=== PATIENT | female | born 1955 | race Caucasian/White ===

== ENCOUNTER → 2016-10-07 | Outpatient (CLI) | payer BC ==
[~2016-10-07] MED LIST: ASCO500T6 PO; ATEN50TA PO; CALC600T12 PO; CHOL10003 PO; GARL1000 PO; MV-M1TAB38 PO; OMG1KC PO; SOLI10TA2 PO; TOLT2CAP PO; TRIA1CAP4 PO; VITA400T9 PO; ZINC50TA4 PO
== END ==
DX: M47.816 Spondylosis without myelopathy or radiculopathy, lumbar region (principal); M43.06 Spondylolysis, lumbar region; M41.26 Other idiopathic scoliosis, lumbar region; M25.551 Pain in right hip

== ENCOUNTER 2017-01-12 08:00 | Outpatient (RCR) | payer BC | END 2017-01-15 | disposition home or self-care (01) | PROVIDERS: ATTEND Internal Medicine | DX: G57.01 Lesion of sciatic nerve, right lower limb (principal) ==

== ENCOUNTER 2017-01-21 09:49 | Outpatient (RCR) | payer BC | END 2017-03-02 11:44 | disposition home or self-care (01) | PROVIDERS: ATTEND Internal Medicine | DX: G57.01 Lesion of sciatic nerve, right lower limb (principal) ==

== ENCOUNTER → 2017-02-11 | Outpatient (CLI) | payer BC | LOC: RAD 09:37 | PROVIDERS: ATTEND Internal Medicine | DX: Z12.31 Encounter for screening mammogram for malignant neoplasm of breast (principal) | CPT/HCPCS: 77067 ==

== ENCOUNTER → 2017-04-05 | Outpatient (CLI) | payer BC ==
--- NOTE | 2017-04-05 09:45 | Diagnostic Imaging Report ---
PROCEDURE: MR imaging of the brain without contrast. TECHNIQUE: Multiplanar, multisequence MR imaging of the brain was performed without contrast. INDICATION: Difficulty speaking FINDINGS: There is no diffusion restriction to suggest an acute infarct or other diffusion abnormality. There is minimal periventricular white matter T2 hyperintense signal suggestive of a mild chronic microvascular ischemic changes, expected at the patient's age. There is otherwise no demyelinating process, or evidence of a mass or brain edema. The brainstem and cerebellum appear unremarkable. No hydrocephalus. No extra-axial fluid collection seen. The pituitary gland is normal in size. No hypothalamic or pineal region mass. The central vascular flow-voids appear grossly unremarkable. The internal auditory canal and inner ear structures appear unremarkable. The visualized portions of the orbits and the paranasal sinuses appear grossly unremarkable. IMPRESSION: No acute infarct. No significant abnormality. Dictated by: Dictated on workstation # [id number]
== END ==
LOC: RAD 08:32
PROVIDERS: ATTEND Internal Medicine
DX: R47.1 Dysarthria and anarthria (principal)
CPT/HCPCS: 70551

== ENCOUNTER → 2017-07-12 | Day surgery (SDC) | payer BC ==
[~2017-07-12] VITALS: Ht 162.6 cm; Wt 75.7 kg
--- OUTSIDE RECORDS SUMMARY | 2017-07-12 11:45 | XMS REPORT | Clinical Summary ---
Author Author [facility] Organization [facility] Address Unknown Phone Unavailable Care Team Providers Care Custodian Supervisor Name Role Phone Олег Beltrán MD PCP Agustin Lara MD Unavailable Source Comments Some departments are not documenting in the electronic medical record. If you do not see the information that you expected, contact Release of Information in the Health Information Management department at [phone] for further assistance in locating additional records.[facility] Allergies No Active Allergies Current Medications Prescription Sig. Disp. Refills Start End Date Status Date atenolol (TENORMIN) 50 mg Daily. 04/20/19 Active PO Tab 08 ascorbic acid (VITAMIN C) Daily. 04/20/19 Active 500 mg PO Tab 08 Vitamin E 200 unit PO Tab Daily. 04/20/19 Active 08 Calcium-Cholecalciferol Daily. 04/20/19 Active (D3) (CALCIUM + D) 600 08 (1,500)-200 mg-unit PO Tab Granite-3 Fatty Daily. 04/20/19 Active Acids-Vitamin E (FISH 08 OIL) 1,000 mg PO Cap Garlic 1,000 mg PO Cap Daily. 04/20/19 Active 08 multivitamin Daily. 04/20/19 Active (MULTI-VITAMIN) PO per 08 tablet Zinc 50 mg PO Cap Daily. 04/20/19 Active 08 Ascorbate Daily. 04/20/19 Active Calcium-Bioflavonoid 08 (KESHIA-C) 1,000-200 mg PO TbSR Active Problems Not on file Social History Tobacco Use Types Packs/Day Years Used Date Never Assessed Sex Assigned at Date Recorded Not on file Last Filed Vital Signs Not on file Plan of Treatment Health Maintenance Due Date Last Done Comments HEPATITIS C SCREENING 1954 PHYSICAL (COMPREHENSIVE) 1961 EXAM PERTUSSIS VACCINE 1965 HIV SCREENING 1969 TETANUS VACCINE 1971 CERVICAL CANCER SCREENING 1984 BREAST CANCER SCREENING 1994 COLORECTAL CANCER 2004 SCREENING SHINGLES VACCINE 2014 INFLUENZA VACCINE 01/16/2018 Results Not on filefrom Last 3 Months
--- NOTE | 2017-07-12 13:42 | Progress Note-Standard ---
Standard Progress Note Progress Notes/Assess & Plan Time Seen by Provider: 12:30 Final Diagnosis Consulted for lumbar puncture with opening pressures. Pt's history, MRI and lab work reviewed. Consent obtained, and equipment gathered. Pt in lateral position , sterile drape and beta prep x3. L3-L4 area localized with 1% lidocaine. 22 gauge pencan needle placed thru 18 gauge introducer with + clear CSF return. Pressure in lateral position measured 18 cmH2O. Pt velia procedure well. Report to RN with instructions to discharge when ready and stable. DARIA REED CRNA Jul 12, 2017 13:42
[2017-07-12 13:58] LABS: CSF GLUCOSE 63 MG/DL (50-80); CSF TOTAL PROTEIN 38 MG/DL (15-40)
[2017-07-12 14:15] LABS: APPEARANCE,CSF CLEAR; COLOR,CSF COLORLESS; RED BLOOD CELL,CSF 1 CELLS (0-0); WHITE BLOOD CELL,CSF 0 CELLS (0-5)
[2017-07-12 14:16] LABS: CSF TUBE NUMBER 4
[2017-07-12 14:30] VITALS: BP 130/78
== END | disposition home or self-care (01) ==
LOC: SDC 11:41
PROVIDERS: ATTEND Internal Medicine
DX: R47.1 Dysarthria and anarthria (principal); R26.9 Unspecified abnormalities of gait and mobility; R53.1 Weakness
CPT/HCPCS: 36415; 82784; 82945; 83916; 84157; 86592; 86618; 87070; 87205; 89051

== ENCOUNTER → 2018-02-13 | Outpatient (CLI) | payer BC ==
--- NOTE | 2018-02-13 11:58 | Diagnostic Imaging Report ---
INDICATION: Routine screening. COMPARISON: 02/11/2017 and 02/11/2016. TECHNIQUE: 2D and 3D bilateral screening mammography was performed with CAD. FINDINGS: Scattered fibroglandular densities are identified bilaterally. There are benign calcifications bilaterally. There is a density noted in the right breast at posterior depth just lateral to the nipple line which appears more prominent than on the prior exam. No definite correlate on the MLO view is seen. This likely represents superimposed tissue but additional views are recommended. The left breast is unremarkable. No suspicious microcalcifications are seen. The axillae are unremarkable. IMPRESSION: Right breast density. Additional views are recommended. ACR BI-RADS Category 0: Incomplete. (Needs additional imaging evaluation). Result letter will be mailed to the patient. Note: At least 10% of breast cancer is not imaged by mammography. Dictated by: Dictated on workstation # [id number]
== END ==
LOC: RAD 08:58
PROVIDERS: ATTEND Obstetrics & Gynecology
DX: Z12.31 Encounter for screening mammogram for malignant neoplasm of breast (principal); R92.8 Other abnormal and inconclusive findings on diagnostic imaging of breast
CPT/HCPCS: 77067

== ENCOUNTER → 2018-03-16 | Outpatient (CLI) | payer BC ==
--- NOTE | 2018-03-16 11:03 | Diagnostic Imaging Report ---
Indication: Right breast density. Patient presents for additional views. Correlation is made with prior mammogram from 02/13/2018. Unilateral right 2-D and 3-D diagnostic mammography was performed including spot compression CC, rolled CC and 90 degree lateral views. Additional views show some mild persistent density in the lower and outer right breast approximately 9 cm from the nipple. While this may represent fibroglandular tissue, other etiologies cannot be excluded. Ultrasound is recommended. Right breast is heterogeneously dense. Impression: Mild residual density with additional views. Sonographic interrogation of the lower outer right breast 9-10 cm from the nipple is recommended and will be performed this morning. BI-RADS zero ACR BI-RADS Category 0: Incomplete. (Needs additional imaging evaluation). Result letter will be mailed to the patient. Note: At least 10% of breast cancer is not imaged by mammography. Dictated by: Dictated on workstation # [id number]
--- NOTE | 2018-03-16 11:11 | Diagnostic Imaging Report ---
INDICATION: Right breast density. Correlation is made with diagnostic mammogram earlier the same day and screening mammogram from 02/13/2018. Sonographic interrogation of the outer portion of the right breast was performed. No solid or cystic masses are seen. No abnormality is identified. IMPRESSION: BI-RADS 3 No sonographic abnormality is identified. Even so, followup right mammogram in 6 months is recommended to show continued stability of the area of density. ACR BI-RADS Category 3: Probably benign findings. Dictated by: Dictated on workstation # [id number]
== END ==
LOC: RAD 09:12
PROVIDERS: ATTEND Internal Medicine
DX: R92.2 Inconclusive mammogram (principal)

== ENCOUNTER 2018-06-15 09:24 | Outpatient (RCR) | payer BC | END 2018-06-15 10:45 | disposition home or self-care (01) | PROVIDERS: ATTEND Psychiatry & Neurology Neurology | DX: G12.23 Primary lateral sclerosis (principal); I10 Essential (primary) hypertension ==

== ENCOUNTER → 2018-09-14 | Outpatient (CLI) | payer BC ==
--- NOTE | 2018-09-14 20:52 | Diagnostic Imaging Report ---
INDICATION: Right breast density. Patient presents for six-month followup. COMPARISON: Correlation is made with prior mammogram from 03/16/2018. EXAMINATION: Unilateral right 2D and 3D diagnostic mammography was performed including CC, MLO and ML views. In addition, spot compression CC and rolled CC views were performed today. FINDINGS: The area of density noted at posterior depth just lateral to the nipple line on the CC view is similar to prior exam. Additional views show dispersion of fibromyomata elements. No suspicious calcifications are seen. IMPRESSION: Stable right mammogram. Additional followup in six months is recommended to show continued stability. ACR BI-RADS Category 3: Probably benign findings. Result letter will be mailed to the patient. Note: At least 10% of breast cancer is not imaged by mammography. Dictated by: Dictated on workstation # [id number]
== END ==
LOC: RAD 12:43
PROVIDERS: ATTEND Internal Medicine
DX: N64.89 Other specified disorders of breast (principal); R92.2 Inconclusive mammogram

== ENCOUNTER → 2018-11-21 | Outpatient (CLI) | payer BC ==
--- NOTE | 2018-11-21 16:58 | Diagnostic Imaging Report ---
INDICATION: Postmenopausal female. COMPARISON: None. FINDINGS: AP Spine L2-L4: [BMD (g/cm2): 1.263] [T-Score: 0.5] [Z-Score: 1.9] [BMD Previous: N/A] [BMD % Change: N/A] LT Hip Neck: [BMD (g/cm2): 0.914] [T-Score: -0.9] [Z-Score: 0.4] LT Hip Total: [BMD (g/cm2):0.934] [T-Score:-0.6] [Z-Score: 0.5] [BMD Previous: N/A] [BMD % Change: N/A] RT Hip Neck: [BMD (g/cm2):0.985] [T-Score:-0.4] [Z-Score:1.0] RT Hip Total: [BMD (g/cm2):0.898] [T-score:-0.9] [Z-Score:0.2] [BMD Previous:N/A] [BMD % Change:N/A] *Indicates significant change from prior examination based on 95% confidence level. World Health Organization criteria for BMD interpretation classify patients as Normal (T-score at or above -1.0), Osteopenic (T-score between -1.0 and -2.5) or Osteoporotic (T-score at or below -2.5). LIMITATIONS AND MODIFICATION: Degenerative changes in the lumbar spine may falsely elevate bone density. FRACTURE RISK (FRAX SCORE): Not applicable. IMPRESSION: 1. Normal Bone mineral density. 2. Baseline examination. 3. See below National Osteoporosis Foundation guidelines on when to potentially initiate pharmacologic therapy. Based on the National Osteoporosis Foundation Guidelines, pharmacologic treatment should be initiated in any of the following, unless clinical conditions suggest otherwise: * Any patient with prior fragility fracture of the hip or vertebrae. A spine fracture indicates 5X risk for subsequent spine fracture and 2X risk for subsequent hip fracture. * Osteoporosis (T-score <-2.5). * Postmenopausal women and men age 50 and older with low bone mass/osteopenia (T-score between -1.0 and -2.5) by DXA and 10-year major osteoporotic fracture greater than 20% or a 10-year probability of hip fracture greater than 3%. These fracture risks are supplied above in the FRAX score, if applicable. * Clinician judgement and/or patient preferences may indicate treatment for people with 10-year fracture probabilities above or below these levels. Dictated by: Dictated on workstation # [id number]
== END ==
LOC: RAD 10:34
PROVIDERS: ATTEND Internal Medicine
DX: G12.23 Primary lateral sclerosis (principal); I10 Essential (primary) hypertension; M40.209 Unspecified kyphosis, site unspecified; Z78.0 Asymptomatic menopausal state
CPT/HCPCS: 77080

== ENCOUNTER → 2019-02-14 | Outpatient (CLI) | payer BC ==
--- NOTE | 2019-02-14 09:42 | Diagnostic Imaging Report ---
INDICATION: Six month followup right breast density. COMPARISON: Correlation is made with prior mammograms dating back to 02/11/2017. TECHNIQUE: 2D and 3D bilateral diagnostic mammography was performed with CAD. FINDINGS: Both breasts remain heterogeneously dense, limiting the sensitivity of mammography. Scattered benign-appearing parenchymal and vascular calcifications are again noted. The density in the posterior and slightly outer right breast is less prominent on today's study. No discrete mass or malignant appearing microcalcifications are seen. The axillae are unremarkable. IMPRESSION: No mammographic features suspicious for malignancy are identified. The patient may return to routine annual screening mammography. ACR BI-RADS Category 2: Benign findings. Result letter will be mailed to the patient. Note: At least 10% of breast cancer is not imaged by mammography. Dictated by: Dictated on workstation # [id number]
== END ==
LOC: RAD 08:46
PROVIDERS: ATTEND Internal Medicine
DX: R92.2 Inconclusive mammogram (principal)
CPT/HCPCS: 77066

== ENCOUNTER → 2019-10-29 | Outpatient (CLI) | payer MEDICARE, BC ==
[~2019-10-29] MED LIST changes: +ASCO500T17 PO; -ASCO500T6 PO; +BARIUM for suspension 96% w/w (Vanilla Silq Medium Density) PO ONE; +BARIUM for suspension 98% w/w (Vanilla Silq High Density) PO ONE; +ZINC50TA11 PO; -ZINC50TA4 PO
--- NOTE | 2019-10-29 12:50 | Diagnostic Imaging Report ---
INDICATION: Amyotrophic lateral sclerosis. Patient has new onset of difficulty swallowing. Patient ingested effervescent crystals as well as thin and thick barium and imaging of the esophagus was performed in multiple obliquities. Total of 1 minute and 10 seconds of fluoroscopic time was utilized. Preliminary radiograph of the chest is unremarkable. Initial images over the throat are unremarkable. There is no evidence of laryngeal penetration or aspiration. There is some impression upon the cervical esophagus by the cricopharyngeus muscle. The esophagus has a smooth contour. No mass or stricture is identified. No gastroesophageal reflux or hiatal hernia was demonstrated. Contrast flows freely into the stomach. IMPRESSION: Unremarkable esophagram. Dictated by: Dictated on workstation # [id number]
== END ==
LOC: RAD 10:44
PROVIDERS: ATTEND Internal Medicine
DX: G12.21 Amyotrophic lateral sclerosis (principal); R47.1 Dysarthria and anarthria; R13.10 Dysphagia, unspecified
CPT/HCPCS: 74220

== ENCOUNTER 2020-12-08 23:05 | Emergency (ER) | payer MEDICARE, BC ==
[~2020-12-08] VITALS: Ht 157.4 cm; Wt 65.3 kg
[~2020-12-08 23:05] MED LIST changes: -BARIUM for suspension 96% w/w (Vanilla Silq Medium Density) PO ONE; -BARIUM for suspension 98% w/w (Vanilla Silq High Density) PO ONE; -CALC600T12 PO; +CALC600T91 PO
[2020-12-08 23:07] VITALS: BP 180/89
--- NOTE | 2020-12-08 23:43 | ED GI ---
General Chief Complaint: Catheter/Drain/Tube Problems Stated Complaint: TUBE PLACEMENT Source of Information: Patient, EMS Exam Limitations: No Limitations History of Present Illness Date Seen by Provider: Dec 08, 2020 Time Seen by Provider: 23:07 Initial Comments 65-year-old female with past medical history of ALS that is G-tube dependent coming in because her G-tube fell out about an hour ago prior to arrival. She has had in place for almost a year. She uses it for feeds and medications. She is not due for anything until the morning. Is not having any pain or any other issues. Allergies and Home Medications Allergies Coded Allergies: No Known Drug Allergies (Unverified , 10/09/09) Home Medications Ascorbic Acid 500 Mg Tablet, 500 MG PO DAILY, (Reported) Atenolol 50 Mg Tablet, 50 MG PO DAILY, (Reported) Calcium Carbonate 600 Mg Tablet, 600 MG PO DAILY, (Reported) Cholecalciferol (Vitamin D3) 1,000 Unit Tablet, 1,000 UNIT PO DAILY, (Reported) Garlic 1,000 Mg Capsule, 1,000 MG PO DAILY, (Reported) Mv-Mn/FA/Vit K/Lycop/Lut/Zeaxa 1 Each Tablet, 1 EACH PO DAILY, (Reported) [place] 3 Polyunsat Fatty Acids 1,000 Mg Cap, 1,000 MG PO DAILY, (Reported) Solifenacin Succinate 10 Mg Tablet, 10 MG PO DAILY, (Reported) Triamterene/Hydrochlorothiazid 1 Each Capsule, 1 EACH PO DAILY, (Reported) Vitamin E Mixed 400 Unit Tablet, 400 UNIT PO DAILY, (Reported) Zinc Gluconate 50 Mg Tablet, 50 MG PO DAILY, (Reported) Patient Home Medication List Home Medication List Reviewed: Yes Review of Systems Review of Systems Constitutional: No chills, No fever EENTM: No Blurred Vision Respiratory: Denies Cough Cardiovascular: Denies Chest Pain Gastrointestinal: Denies Abdominal Pain, Denies Nausea Genitourinary: Denies Frequency Musculoskeletal: No back pain Skin: No rash Psychiatric/Neurological: Denies Anxiety Endocrine: No Symptoms Reported Hematologic/Lymphatic: No Symptoms Reported All Other Systems Reviewed Negative Unless Noted: Yes Past Gxzekbz-Kbeaza-Lmtcxo Hx Patient Social History Tobacco Use?: No Use of E-Cig and/or Vaping dev: No Substance use?: No Alcohol Use?: No Pt feels they are or have been: No Immunizations Up To Date Influenza Vaccine Up-to-Date: Yes; Up-to-Date First/Initial COVID19 Vaccinat: APR 2020 Second COVID19 Vaccination Chaz: MAY 2020 COVID19 Vaccine Spinner Box: [place] Physical Exam Vital Signs Vital Signs - First Documented 12/08/20 23:07 Temp 36.5 Pulse 86 Resp 14 B/P (MAP) 180/89 (119) Pulse Ox 95 O2 Delivery Room Air Capillary Refill : Less Than 3 Seconds Height/Weight/BMI Height: 5'4.00" Weight: 167lbs. 0.0oz. [id number]; 26.00 BMI Method: General Appearance: WD/WN, no apparent distress HEENT: PERRL/EOMI, normal ENT inspection, pharynx normal Neck: non-tender, full range of motion, supple Respiratory: chest non-tender, lungs clear, normal breath sounds Cardiovascular: regular rate, rhythm, no edema, no murmur Gastrointestinal: normal bowel sounds, non tender, soft; No guarding, No rebound; other (G-tube taped to her abdomen but out of the stoma, stoma with a small amount of bleeding) Extremities: normal range of motion, non-tender, normal inspection Back: normal inspection Neurologic/Psychiatric: no motor/sensory deficits, alert, normal mood/affect Skin: normal color, warm/dry Lymphatic: no adenopathy Procedures/Interventions Additional Procedures: gastric tube replacement Progress Attempted to replace the 18 Mosotho gastric tube that was present from the patient, but there was a significant amount of resistance and it would not go. Replaced instead with an 18 Mosotho Lynn catheter without difficulty. Balloon was blown up and it was taped in place with a dressing. Minimal amount of bleeding which stopped after the procedure. Progress/Results/Core Measures Results/Orders Vital Signs/I&O 12/08/20 23:07 Temp 36.5 Pulse 86 Resp 14 B/P (MAP) 180/89 (119) Pulse Ox 95 O2 Delivery Room Air Blood Pressure Mean: 119 Progress Progress Note : Progress Note 65-year-old female with above history coming in due to a G-tube displacement. ABCs were intact and vitals were stable on presentation. It does appear that the G-tube came out with the balloon blown up causing a small amount of trauma and bleeding which is now hemostatic. Was able to replace it with a Lynn catheter, the G-tube would not pass even with lubricant. I called and discussed the case with the patient's power of contracts attorney, her daughter. She had the G-tube originally placed in [place] at . I discussed that there is no emergent need to have it replaced right now, given that the stoma is stented open with a Lynn catheter and she is not due for any feeds for a while. I recommended calling in the morning versus calling one of our surgeons in the morning. I told him if all else fails and they are unable to find someone to replace it, they could always present to [facility] where there are new G-tubes available to replace the Lynn. The patient and daughter was agreeable to this plan. I believe she is stable for discharge. She was sent home with strict return precautions. Departure Impression Primary Impression: Complaint associated with gastric tube Disposition: HOME, SELF-CARE Condition: Stable Departure-Patient Inst. Decision time for Depature: 23:41 Referrals: CARA SENA DO (PCP/Family) Primary Care Physician Patient Instructions: How to Care for Your PEG Tube Add. Discharge Instructions: He was seen in the emergency department because her G-tube came out. We were unable to get your G-tube back into the stoma, but we were able to get a Lynn catheter of the same size and to the stoma. This is just to hold its place, do not put anything through the Lynn catheter. Please call your surgeon at in the morning and see if they are able to get you into place a new one versus you can always call one of our surgeons in [place]. Dr. Lara is coal gasification technician tomorrow and office number is [phone]. If you are unable to get anybody to get the [address], I would recommend going to the emergency department in [place] and they do have G-tubes that could replace it there. All discharge instructions reviewed with patient and/or family. Voiced un derstanding. TONIO FRANCE MD Dec 08, 2020 23:43
== END 2020-12-08 23:56 | disposition home or self-care (01) ==
LOC: EDUNIT# 23:05 → ER FS 23:07
DX: K94.20 Gastrostomy complication, unspecified (principal)
CPT/HCPCS: 43762

== ENCOUNTER 2020-12-09 13:58 | Emergency (ER) | payer MEDICARE, BC ==
[~2020-12-09] VITALS: Ht 157 cm; Wt 64.0 kg
[2020-12-09 14:37] VITALS: BP 157/88
--- NOTE | 2020-12-09 14:41 | ED GI ---
General Stated Complaint: PEG TUBE REPLACEMENT Source of Information: Patient Exam Limitations: No Limitations History of Present Illness Date Seen by Provider: Dec 09, 2020 Time Seen by Provider: 14:40 Initial Comments to ER by [facility] from [facility] with reports of gastric tube needing replaced. She was seen in the emergency room at [place] last night and it was changed to an 18 Lebanese Lynn catheter. She has an [address] Lebanese [address] in place secondary to a diagnosis of ALS and is on hospice. The Lynn catheter is inconvenient and she would like this was exchanged with an actual PEG tube. Timing/Duration: 1-2 Days Severity/Quality: Moderate Location: Generalized Abdomen Radiation: No Radiation Activities at Onset: None Allergies and Home Medications Allergies Coded Allergies: No Known Drug Allergies (Unverified , 10/09/09) Home Medications Ascorbic Acid 500 Mg Tablet, 500 MG PO DAILY, (Reported) Atenolol 50 Mg Tablet, 50 MG PO DAILY, (Reported) Calcium Carbonate 600 Mg Tablet, 600 MG PO DAILY, (Reported) Cholecalciferol (Vitamin D3) 1,000 Unit Tablet, 1,000 UNIT PO DAILY, (Reported) Garlic 1,000 Mg Capsule, 1,000 MG PO DAILY, (Reported) Mv-Mn/FA/Vit K/Lycop/Lut/Zeaxa 1 Each Tablet, 1 EACH PO DAILY, (Reported) [place] 3 Polyunsat Fatty Acids 1,000 Mg Cap, 1,000 MG PO DAILY, (Reported) Solifenacin Succinate 10 Mg Tablet, 10 MG PO DAILY, (Reported) Triamterene/Hydrochlorothiazid 1 Each Capsule, 1 EACH PO DAILY, (Reported) Vitamin E Mixed 400 Unit Tablet, 400 UNIT PO DAILY, (Reported) Zinc Gluconate 50 Mg Tablet, 50 MG PO DAILY, (Reported) Patient Home Medication List Home Medication List Reviewed: Yes Review of Systems Review of Systems Constitutional: see HPI EENTM: No Symptoms Reported Respiratory: No Symptoms Reported Cardiovascular: No Symptoms Reported Gastrointestinal: See HPI, Abdominal Pain Genitourinary: No Symptoms Reported Musculoskeletal: no symptoms reported Skin: no symptoms reported Psychiatric/Neurological: No Symptoms Reported Endocrine: No Symptoms Reported Hematologic/Lymphatic: No Symptoms Reported Physical Exam Vital Signs Capillary Refill : Height/Weight/BMI Height: 5'4.00" Weight: 167lbs. 0.0oz. [id number]; 26.00 BMI Method: General Appearance: WD/WN, no apparent distress HEENT: PERRL/EOMI, normal ENT inspection Respiratory: no respiratory distress, no accessory muscle use Gastrointestinal: normal bowel sounds, non tender, soft Extremities: normal range of motion, non-tender Neurologic/Psychiatric: alert, normal mood/affect, oriented x 3 Skin: normal color, warm/dry Departure Communication (Admissions) 1443-18 Lebanese Lynn catheter balloon deflated and removed, 18 Lebanese percutaneous endoscopic gastrostomy tube easily reinserted balloon inflated. Impression Primary Impression: Gastric tube replacement Disposition: 01 HOME, SELF-CARE Condition: Stable Departure-Patient Inst. Decision time for Depature: 14:41 Referrals: CARA SENA DO (PCP/Family) Primary Care Physician Patient Instructions: How to Care for Your PEG Tube LETICIA MATUTE SECURITY SHIFT SUPERVISOR Dec 09, 2020 14:41
== END 2020-12-09 14:43 | disposition home or self-care (01) ==
LOC: EDUNIT# 13:58 → ER 14:35
DX: Z43.1 Encounter for attention to gastrostomy (principal)
CPT/HCPCS: 43762